=== PATIENT | male | born 1995 | race Caucasian/White ===

== ENCOUNTER 2017-04-21 20:05 | Emergency (ER) | payer BC ==
[~2017-04-21] VITALS: Ht 182.9 cm; Wt 61.2 kg
== END 2017-04-21 21:53 | disposition home or self-care (01) ==
LOC: ED 20:05
DX: N34.2 Other urethritis (principal); F17.200 Nicotine dependence, unspecified, uncomplicated
CPT/HCPCS: 87491; 87591; 99283

== ENCOUNTER 2017-08-31 17:39 | Emergency (ER) | payer BC ==
[~2017-08-31] VITALS: Ht 182.9 cm; Wt 65.8 kg
[2017-08-31] MEDS ORDERED: ONDANSETRON ODT8 MG PO (21:54)
== END 2017-08-31 22:13 | disposition home or self-care (01) ==
LOC: ED 17:39
DX: K29.00 Acute gastritis without bleeding (principal); F17.200 Nicotine dependence, unspecified, uncomplicated
CPT/HCPCS: 80053; 85025; 96361; 96374; 96375; 96376; 99284; J2405; J7030; J7040

== ENCOUNTER 2018-05-17 02:51 | Emergency (ER) | payer BC ==
[~2018-05-17] VITALS: Ht 182.9 cm; Wt 56.7 kg
--- OUTSIDE RECORDS SUMMARY | ~2018-05-17 | XMS | Clinical Summary ---
Demographics + + + | Address | [address] | | | [place] [address] | + + + | Home Phone | | + + + | Preferred Language | Unknown | + + + | Marital Status | Single | + + + | Episcopalian Affiliation | Unknown | + + + | Race | Unknown | + + + | Ethnic Group | Unknown | + + + Author + + + | Author | [facility] | | | and [place] | + + + | Organization | [facility] | | | and [place] | + + + | Address | Unknown | + + + | Phone | Unavailable | + + + Support + + +---------+ + | Name | Relationship | Address | Phone | + + +---------+ + | SHIRLEY CRUZ | ECON | Unknown | | + + +---------+ + Care Team Providers + +------+ + | Care Grocery Team Member Name | Role | Phone | + +------+ + PP | Unavailable | + +------+ + Allergies Not on File Current Medications Not on file Active Problems Not on file Social History + +-------+ +--------+------+ | Tobacco Use | Types | Packs/Day | Years | Date | | | | | Used | | + +-------+ +--------+------+ | Never Assessed | | | | | + +-------+ +--------+------+ + + + | Sex Assigned at | Date Recorded | | | | + + + | Not on file | | + + + Plan of Treatment + + + + + | Health Maintenance | Due Date | Last Done | Comments | + + + + + | Vaccine: | | | | | Dtap/Tdap/Td (1 - | 5 | | | | Tdap) | | | | + + + + + | Vaccine: Influenza | | | | | (#1) | 8 | | | + + + + + Results Not on filefrom Last 3 Months"
--- OUTSIDE RECORDS SUMMARY | ~2018-05-17 | XMS | Clinical Summary ---
Demographics + + + | Address | [address] | | | [place] [address] | + + + | Home Phone | | + + + | Preferred Language | Unknown | + + + | Marital Status | Single | + + + | Adventism Affiliation | Unknown | + + + | Race | Unknown | + + + | Ethnic Group | Unknown | + + + Author + + + | Author | [facility] | | | and [place] | + + + | Organization | [facility] | | | and [...] Team Providers + +------+ + | Care Roll Operator Name | Role | Phone | + [...]
--- OUTSIDE RECORDS SUMMARY | ~2018-05-17 | XMS | Clinical Summary ---
Demographics + + + | Address | [address] | | | [place] [address] | + + + | Home Phone | | + + + | Preferred Language | Unknown | + + + | Marital Status | Single | + + + | Protestant Affiliation | Unknown | + + + | Race | White | + + + | Ethnic Group | Not or | + + + Author + + + | Organization | Unknown | + + + | Address | Unknown | + + + | Phone | Unavailable | + + + Support + + +---------+ + | Name | Relationship | Address | Phone | + + +---------+ + | SHIRLEY CRUZ&TIMOTHY | ECON | Unknown | | + + +---------+ + Care Team Providers + +------+ + | Care Dependency Counselor Name | Role | Phone | + +------+ + PP | Unavailable | + +------+ + Source Comments JOE is fully live on both [facility] and [facility]Patient.[facility] Allergies No Known Allergies Current Medications Not on file Active Problems + + + | Problem | Noted Date | + + + | Attention deficit hyperactivity disorder (ADHD) | | + + + + + | Overview: <PROVIDER>ANIA LOUIE | | | | ICD10 | + + Social History + +-------+ +--------+------+ | Tobacco [...] | + + + + + | INFLUENZA VACCINE | | | | | (FLU SHOT) | 8 | | | + + + + + Results Not on filefrom Last 3 Months"
--- OUTSIDE RECORDS SUMMARY | ~2018-05-17 | XMS | Clinical Summary ---
Demographics + + + | Address | [address] | | | [place] [address] | + + + | Home Phone | | + + + | Preferred Language | Unknown | + + + | Marital Status | Single | + + + | Scientology Affiliation | Unknown | + + + [...] Team Providers + +------+ + | Care Artist'S Representative Name | Role | Phone | + +------+ + PP | Unavailable | + +------+ + Source Comments JOE is fully live on both [facility] and [facility] InPatient.[facility] Allergies No Known Allergies Current Medications Not [...]
[~2018-05-17 02:51] MED LIST: ONDANSETRON ODT8 MG PO
--- OUTSIDE RECORDS SUMMARY | 2018-05-17 02:56 | XMS ---
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 [facility] has no Care Guidelines for this patient. [facility] VISIT COUNT (12 MO.) 2 [facility] TOTAL 2 NOTE: Visits indicate total known visits. ED/C VISIT TRACKING (12 MO.) 05/17/2018 02:51 [facility] [place] TYPE: Emergency COMPLAINT: - DENTAL PAIN 08/31/2017 17:[address] [facility] [place] TYPE: Emergency COMPLAINT: - VOMITING BLOOD DIAGNOSES: - Acute gastritis without bleeding - Hematemesis - Nicotine dependence, unspecified, uncomplicated INPATIENT VISIT TRACKING (12 MO.) No inpatient visits to display in this time frame [email or web address]
[2018-05-17] MEDS ORDERED: CLINDAMYCIN HC300 MG PO (03:17)
[2018-05-17] MEDS ORDERED: ACETAMINOPHEN-1 EAC1 PO (03:17)
== END 2018-05-17 03:29 | disposition home or self-care (01) ==
LOC: ED 02:51
DX: K08.89 Other specified disorders of teeth and supporting structures (principal); F17.200 Nicotine dependence, unspecified, uncomplicated
CPT/HCPCS: 99282